=== PATIENT | female | born 1990 | race Caucasian/White ===

== ENCOUNTER 2017-05-30 13:45 | Inpatient (IN) | payer OTHER ==
[~2017-05-30] VITALS: Ht 149.9 cm; Wt 3.2 kg
[2017-06-07] MEDS ORDERED: PRENATAL TABLE1 EAC1 PO (07:05)
== END 2017-06-09 13:39 | DRG 766 ==
LOC: OB/GYN 06-07 06:30 → O/R 06-07 06:30 → OB/GYN 06-07 07:00
PROVIDERS: Obstetrics & Gynecology
PROC: 0UT70ZZ Resection of Bilateral Fallopian Tubes, Open Approach (ICD-10-PCS; 2017-06-07)
PROC: 4A1HXCZ Monitoring of Products of Conception, Cardiac Rate, External Approach (ICD-10-PCS; 2017-06-07)
PROC: 4A033R1 Measurement of Arterial Saturation, Peripheral, Percutaneous Approach (ICD-10-PCS; 2017-06-07)
PROC: 10D00Z1 Extraction of Products of Conception, Low, Open Approach (ICD-10-PCS; principal; 2017-06-07 07:00)
DX: O34.211 Maternal care for low transverse scar from previous cesarean delivery (principal); Z30.2 Encounter for sterilization; Z64.1 Problems related to multiparity; Z3A.38 38 weeks gestation of pregnancy; Z37.0 Single live birth